=== PATIENT | female | born 1965 | race Caucasian/White ===

== ENCOUNTER 2020-08-03 11:27 | Emergency (ER) | payer BC ==
[~2020-08-03] VITALS: Ht 165.1 cm; Wt 56.7 kg
[2020-08-03] MEDS ORDERED: ACETAMINOPHEN 325 MG TABLET PO ONE (11:45)
[2020-08-03] MEDS ORDERED: ONDANSETRON ODT 4 MG TAB.RAPDIS SL ONE (11:45)
[2020-08-03] MEDS ORDERED: HYDROCODONE/APAP 5-325MG TABLET PO ONE (11:45)
[2020-08-03] MEDS ORDERED: TDAP DIPH,PERTUSS,TET VAC/PF 0.5 ML DISP.SYRIN IM ONE ×2 (11:45→11:52)
[2020-08-03] MEDS ORDERED: ONDANSETRON ODT 4 MG TAB.RAPDIS ONE (11:53)
[2020-08-03] MEDS ORDERED: ACETAMINOPHEN ES 500 MG TABLET ONE (11:53)
[2020-08-03 12:07] LABS: *URINE HCG, QUAL NEG (NEGATIVE)
--- NOTE | 2020-08-03 13:06 | NUR ---
PT IS IN ROOM #2B. DR GRAMAJO EVALUATED THE PT.
--- NOTE | 2020-08-03 14:02 | NUR ---
PT WAS D/C'd FROM [facility] TO HOME. D/C INSTRUCTIONS GIVEN TO THE PT BY DR GRAMAJO.
[2020-08-03 14:03] VITALS: BP 132/69
== END 2020-08-03 15:21 | disposition home or self-care (01) ==
LOC: ER 11:27
DX: S09.90XA Unspecified injury of head, initial encounter (principal); W01.0XXA Fall on same level from slipping, tripping and stumbling without subsequent striking against object, initial encounter; Y93.01 Activity, walking, marching and hiking; Y92.89 Other specified places as the place of occurrence of the external cause; S13.9XXA Sprain of joints and ligaments of unspecified parts of neck, initial encounter; S23.3XXA Sprain of ligaments of thoracic spine, initial encounter; S33.5XXA Sprain of ligaments of lumbar spine, initial encounter; S63.501A Unspecified sprain of right wrist, initial encounter; S63.602A Unspecified sprain of left thumb, initial encounter; S03.40XA Sprain of jaw, unspecified side, initial encounter; S00.81XA Abrasion of other part of head, initial encounter; S80.212A Abrasion, left knee, initial encounter; S60.811A Abrasion of right wrist, initial encounter; S83.92XA Sprain of unspecified site of left knee, initial encounter; Z88.1 Allergy status to other antibiotic agents; Z88.0 Allergy status to penicillin; Z88.8 Allergy status to other drugs, medicaments and biological substances; M81.0 Age-related osteoporosis without current pathological fracture
CPT/HCPCS: 70450; 70486; 71101; 72072; 72100; 72125; 73110; 73130; 84703; 90715; A4663; A9150; Q0162